=== PATIENT | female | born 1995 | race Asian ===

== ENCOUNTER 2016-09-16 08:15 | Emergency (ER) | payer OTHER ==
[~2016-09-16] VITALS: Ht 154.9 cm; Wt 58.1 kg
[2016-09-16 08:25] VITALS: BP 118/78
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
[2016-09-16] MEDS ORDERED: IBUPROFEN600 MG ORAL (10:29)
[2016-09-16 10:37] VITALS: BP 116/75
[2016-09-16 10:39] VITALS: BP 116/75
--- NOTE | 2016-09-16 14:08 | Diagnostic Imaging Report ---
Clinical Indication:PAIN Technique: 3 views of the right wrist Comparison: None Findings: No acute fractures. No dislocations. Joint spaces are preserved Impression: Negative This agrees with the preliminary interpretation provided by the emergency room physician
--- NOTE | 2016-09-16 16:23 | Diagnostic Imaging Report ---
Indication: PAIN Technique: Two views of the chest Comparison: none Findings: Lungs and pleural spaces are clear. Heart size is normal. Impression: Negative
== END 2016-09-16 10:41 | disposition home or self-care (01) ==
LOC: EMR 09:07
DX: S63.501A Unspecified sprain of right wrist, initial encounter (principal); V49.9XXA Car occupant (driver) (passenger) injured in unspecified traffic accident, initial encounter; Y93.9 Activity, unspecified; Y92.410 Unspecified street and highway as the place of occurrence of the external cause
CPT/HCPCS: 29260; 71020; 99283